=== PATIENT | male | born 1950 | race Caucasian/White ===

== ENCOUNTER 2018-02-11 14:47 | Inpatient (IN) ==
[2018-02-11] MEDS ORDERED: Sod Chloride 0.9% Inj 1,000 ML IV.SIG ONE (14:59)
[2018-02-11 15:52] LABS: Baso % (Auto) 0.5 % (0.0-2.0); Hematocrit 40.3 % (39.0-51.0); Hemoglobin 13.7 gm/dL (13.0-17.0); Lymph # (Auto) 0.8 th/mm3 (1.0-4.8); Mean Corpuscular HGB Conc 33.9 % (32.0-36.0); Mean Corpuscular Hemoglobin 27.9 pg (27.0-34.0); Mean Corpuscular Volume 82.4 fL (80.0-100.0); Mean Platelet Volume 8.3 fL (7.0-11.0); Mono # (Auto) 0.6 th/mm3 (0.0-0.9); Mono % (Auto) 7.5 % (0.0-8.0); Neut # (Auto) 6.4 th/mm3 (1.8-7.7); Platelet Count 198 th/mm3 (150-450); Red Blood Count 4.89 mil/mm3 (4.50-5.90); Red Cell Distribution Width 14.4 % (11.6-17.2); White Blood Count 7.9 th/mm3 (4.0-11.0)
[2018-02-11 16:02] LABS: Anion Gap 19 meq/L (5-15); Aspartate Aminotransferase 116 U/L (15-37); Blood Urea Nitrogen 23 mg/dL (7-18); Calcium 8.2 mg/dL (8.5-10.1); Carbon Dioxide 18.6 meq/L (21.0-32.0); Chloride 92 meq/L (98-107); Glomerular Filtration Rate Greater Than 89 mL/min (>89); Glucose,Random 93 mg/dL (74-106); Lipase 847 U/L (73-393); Potassium 3.5 meq/L (3.5-5.1); Sodium 130 meq/L (136-145)
[2018-02-11 16:03] LABS: Alanine Aminotransferase 121 U/L (12-78)
[2018-02-11 16:05] LABS: Alkaline Phosphatase 70 U/L (45-117); Total Protein 7.4 g/dL (6.4-8.2)
[2018-02-11 16:08] LABS: Alcohol 52 mg/dL (0-5)
[2018-02-11] MEDS ORDERED: Sod Chloride 0.9% Inj 1,000 ML IV.SIG SCH ×2 (16:15→16:45)
[2018-02-11] MEDS ORDERED: Haloperidol Inj 5 MG/ML Ampul IV.PUSH PRN ×2 (16:38→17:02)
[2018-02-11] MEDS ORDERED: LORazepam 1 MG Tablet PO PRN ×2 (16:38→17:02)
--- NOTE | 2018-02-11 16:49 | P.HP ---
History of Present Illness Primary Care Physician: Jessica Moy Chief Complaint: Stopped drinking and now has N&V History of Present Illness: This is a 67 year old male patient with a past medical history which includes Asthma, HTN, BPH and ETOH abuse, drinks 2 bottles (unable to give size of bottles) of Vodka a day then stopped drinking today. Patient now having nausea , vomiting and tremors. Patient also c/o, "tooth pain," in the anterior aspect of his mouth. Patient denies abd pain. Patient denies fevers, chills, chest pain or SOB. PMH: Asthma, HTN, BPH and ETOH abuse, drinks 2 bottles (unable to give size of bottle ) of Vodka a day PSxH: Cholecystectomy Social history: lives with significant other ETOH abuse, drinks 2 bottles (unable to give size of bottle) of Vodka a day Quit tobacco use 25 + years ago used marijuana months ago FMH: reviewed and noncontributory - Diagnosis (1) ETOH abuse PMFSH - History History Provided By: Patient - Medical History Medical History: Medical History (Last Updated 02/11/18 @ 15:07 by Chana Haynes RN) Asthma COPD (chronic obstructive pulmonary disease) Hypertension - Tobacco History Smoking Status: Former smoker Tobacco Type: Cigarettes - Alcohol History How Often Do You Have a Drink Containing Alcohol: 4 or more times a week - Substance Use History Substance History: No History of Abuse - Travel History Recent Travel in the [place] Within the Last 8 Weeks: No Recent Travel Out of the Country Within the Last 8 Weeks: No - Immunization History Tetanus Immunization: >5 Years Hx Influenza Vaccine This Season: Yes Medications and Allergies Active Medications: Active Medications Flumazenil (Romazecon Inj) 0.2 mg IV.PUSH Q1M PRN PRN Reason: OVERSEDATION Haloperidol Lactate (Haldol Inj) 1 mg IV.PUSH Q15M PRN PRN Reason: for severe agitation Sodium Chloride (Ns Inj) 1,000 mls @ 0 mls/hr IV.SIG BOLUS PIPPA Sodium Chloride (Ns Inj) 1,000 mls @ 0 mls/hr IV.SIG BOLUS PIPPA Lorazepam (Ativan Inj) 1 mg IV.PUSH Q4H PRN PRN Reason: for CIWA 8-10 Lorazepam (Ativan Inj) 2 mg IV.PUSH Q15M PRN PRN Reason: for CIWA > 20 Lorazepam (Ativan Inj) 2 mg IV.PUSH Q2H PRN PRN Reason: for CIWA 11-14 Lorazepam (Ativan) 1 mg PO Q4H PRN PRN Reason: for CIWA 8-10 Lorazepam (Ativan) 2 mg PO Q2H PRN PRN Reason: for CIWA 11-14 Lorazepam (Ativan Inj) 2 mg IV.PUSH Q1H PRN PRN Reason: for CIWA 15-20 Allergies Allergy/AdvReac Type Severity Reaction Status Date / Time No Known Allergies Allergy Uncoded 08/18/12 19:38 Exam Vital signs: Vital Signs 02/11/18 14:59 02/11/18 15:08 02/11/18 16:06 Temperature 98.9 F Pulse Rate 100 H 95 H Respiratory Rate 16 Blood Pressure 210/95 H 208/87 H 194/87 H Pulse Oximetry 96 98 Intake & Output 02/10/18 02/11/18 02/11/18 18:59 06:59 18:59 Weight 75.75 kg Narrative: GENERAL: This is ill appearing thin 67 year old male mildly tremulous bilateral upper extremities Oral mucosa: poor dentition with multiple decaying teeth CARDIOVASCULAR: Regular rate and rhythm RESPIRATORY: Clear to auscultation. Breath sounds equal bilaterally. GASTROINTESTINAL: Abdomen soft, tender RUQ, nondistended. Normal active bowel sounds MUSCULOSKELETAL: Extremities without clubbing, cyanosis, or edema. NEURO: Alert & Oriented x4 to person, place, time, situation. Moves all ext x4 Results - Labs CBC & Chem 7: 02/11/18 15:04 02/11/18 15:04 Labs: Laboratory Results - last 24 hr 02/11/18 02/11/18 02/11/18 15:04 15:04 15:45 WBC 7.9 RBC 4.89 Hgb 13.7 Hct 40.3 MCV 82.4 MCH 27.9 MCHC 33.9 RDW 14.4 Plt Count 198 MPV 8.3 Neut % (Auto) 82.0 H Lymph % (Auto) 10.0 [place] % (Auto) 7.5 Eos % (Auto) 0.0 Baso % (Auto) 0.5 Neut # (Auto) 6.4 Lymph # (Auto) 0.8 L [place] # (Auto) 0.6 Eos # (Auto) 0.0 Baso # (Auto) 0.0 WBC Differential . Differential Comment Auto diff final Sodium 130 L Potassium 3.5 Chloride 92 L Carbon Dioxide 18.6 L Anion Gap 19 H BUN 23 H Creatinine 0.67 Estimated GFR Greater than 89 Random Glucose 93 Lactic Acid 3.9 H Calcium 8.2 L Total Bilirubin 0.9 AST 116 H ALT 121 H Alkaline Phosphatase 70 Total Protein 7.4 Albumin 4.0 Lipase 847 H Serum Alcohol 52 H Caprini VTE Risk Assessment Caprini VTE Risk Assessment: No/Low Risk (score <= 1) Caprini Risk Assessment Model: Point Value = 1 Point Value = 2 Point Value = 3 Point Value = 5 Age 41-60 Minor surgery BMI > 25 kg/m2 Swollen legs Varicose veins or History of unexplained or recurrent spontaneous Oral contraceptives or hormone replacement Sepsis (< 1 month) Serious lung disease, including pneumonia (< 1 month) Abnormal pulmonary function Acute myocardial infarction Congestive heart failure (< 1 month) History of inflammatory bowel disease Medical patient at bed rest Age 61-74 Arthroscopic surgery Major open surgery (> 45 min) Laparoscopic surgery (> 45 min) Malignancy Confined to bed (> 72 hours) Immobilizing plaster cast Central venous access Age >= 75 History of VTE Family history of VTE Factor V Leiden Prothrombin [id number] Lupus anticoagulant Anticardiolipin antibodies Elevated serum homocysteine Heparin-induced thrombocytopenia Other congenital or acquired thrombophilia Stroke (< 1 month) Elective arthroplasty Hip, pelvis, or leg fracture Acute spinal cord injury (< 1 month) Prophylaxis Regimen: Total Risk Factor Score Risk Level Prophylaxis Regimen 0-1 Low Early ambulation 2 Moderate Order ONE of the following: *Sequential Compression Device (SCD) *Heparin 5000 units SQ BID 3-4 Higher Order ONE of the following medications: *Heparin 5000 units SQ TID *Enoxaparin/Lovenox 40 mg SQ daily (WT < 150 kg, CrCl > 30 mL/min) *Enoxaparin/Lovenox 30 mg SQ daily (WT < 150 kg, CrCl > 10-29 mL/min) *Enoxaparin/Lovenox 30 mg SQ BID (WT < 150 kg, CrCl > 30 mL/min) AND/OR *Sequential Compression Device (SCD) 5 or more Highest Order ONE of the following medications: *Heparin 5000 units SQ TID (Preferred with Epidurals) *Enoxaparin/Lovenox 40 mg SQ daily (WT < 150 kg, CrCl > 30 mL/min) *Enoxaparin/Lovenox 30 mg SQ daily (WT < 150 kg, CrCl > 10-29 mL/min) *Enoxaparin/Lovenox 30 mg SQ BID (WT < 150 kg, CrCl > 30 mL/min) AND *Sequential Compression Device (SCD) Assessment and Plan - Assessment (1) ETOH abuse Code(s): F10.10 - Alcohol abuse, uncomplicated Status: Acute Plan: ETOH withdraw This is a 67 year old male patient with a past medical history which includes Asthma, HTN, BPH and ETOH abuse, drinks 2 bottles (unable to give size of bottle ) of Vodka a day then stopped drinking today. Patient now having nausea, vomiting and tremors. Patient also c/o, "tooth pain," in the anterior aspect of his mouth. Patient denies abd pain. Patient denies fevers, chills, chest pain or SOB. Librium 25 mg TID CIWA protocol seizure precautions total Bilirubin 0.9, AST 116, ALT 121 and alk phos 70 patient counselled encouraged to abstain Supportive care monitor in ICU overnight Hyponatremia likely related to ETOH abuse and vomiting IVFs recheck in AM Pancreatitis Lipase 847, recheck in AM IVF NPO zofarn as needed CT abd/Pelvis with contrast ordered Asthma does not appear to be in acute exacerbation duonebs as needed HTN clonidine 0.1 mg Q6H as needed Continue home medication once med reconciliation completed BPH Continue home Flomax Poor dentition/tooth decay recommend patient follow up with dentist after DC from the hospital DVT prophylaxis with SCDs
--- NOTE | 2018-02-11 17:23 | XR ---
EXAM DATE: 02/11/2018 5:17 PM EDT AGE/SEX: 67 years / Male INDICATIONS: Shortness of breath, chest pain and nausea. CLINICAL DATA: This is the patient's initial encounter. Patient reports that signs and symptoms have been present for 1 day and indicates a pain score of 2/10. MEDICAL/SURGICAL HISTORY: Hypertension. Chronic obstructive pulmonary disease. Asthma. None. COMPARISON: [facility] [place], CHEST SINGLE AP, 05/14/2012. . FINDINGS: The lungs are clear without infiltrate, nodule, or mass. There is no appreciable pleural effusion for technique. Heart and mediastinum are unremarkable. CONCLUSION: No acute cardiopulmonary disease. Electronically signed by: Quang Hu MD 02/11/2018 5:22 PM EDT
[2018-02-11] MEDS ORDERED: Diatrizoate Meglum/Diatrizoate Sod Liq 9 ML UDC PO ONE (18:00)
--- NOTE | 2018-02-11 18:05 | ED ---
HPI General Chief complaint: Nausea/Vomiting/Diarrhea Stated complaint: dizziness Time Seen by Provider: 02/11/18 14:50 Source: patient and EMS Mode of arrival: EMS Limitations: no limitations History of Present Illness HPI Narrative: 67-year-old male the presents to the ED for evaluation of weakness, nausea vomiting and possible tremors. Patient has a history of alcoholism and per patient he abuses alcohol in binges. Apparently his been going on a 2 week binge of alcohol and he last drank yesterday. Per patient he has been feeling very weak and tired. Apparently his roommate call ambulance. Per ambulance report the room where the patient was taken from was full of empty bottles of alcohol. Patient states that he feels very weak. He is dry heaving on my exam. He denies doing this for suicidal ideation but rather for recreational purposes. He states that he has been doing this for some time and per medical records he has. He does have a history of pancreatitis as well. He also states that he has acute pain and this pain is 4 out of 10. He denies any other medical issues. No chest pain or shortness of breath. No urinary or bowel movement issues. Related Data Allergies Allergy/AdvReac Type Severity Reaction Status Date / Time No Known Allergies Allergy Uncoded 08/18/12 19:38 Review of Systems ROS: all other systems reviewed are negative [facility] Medical History Medical History Asthma (Acute) COPD (chronic obstructive pulmonary disease) (Acute) Hypertension (Acute) Social History Social History Substance History: No History of Abuse Smoking Status: Former smoker Tobacco Type: Cigarettes How Often Do You Have a Drink Containing Alcohol: 4 or more times a week Recent Travel in [facility] within the Last 8 Weeks: No Recent Out of Country Travel within the Last 8 Weeks: No Immunization History Tetanus Immunization: >5 Years Hx Influenza Vaccine This Season: Yes Exam Narrative Exam Narrative: GENERAL: Disheveled SKIN: Focused skin assessment warm/dry. HEAD: Atraumatic. Normocephalic. EYES: Pupils equal and round. No scleral icterus. No injection or drainage. ENT: No nasal bleeding or discharge. Mucous membranes pink and moist. Tongue is midline. No uvula deviation. NECK: Trachea midline. No JVD. CARDIOVASCULAR: Regular rate and rhythm. No murmur appreciated. RESPIRATORY: No accessory muscle use. Clear to auscultation. Breath sounds equal bilaterally. GASTROINTESTINAL: Abdomen soft, non-tender, nondistended. Hepatic and splenic margins not palpable. MUSCULOSKELETAL: No obvious deformities. No clubbing. No cyanosis. No edema. Full range of motion of the upper and lower extremities bilaterally. 2+ pulses bilaterally. Mild tremors noted on the upper extremities. NEUROLOGICAL: Awake and alert. No obvious cranial nerve deficits. Motor grossly within normal limits. Normal speech. PSYCHIATRIC: Intoxicated mood and affect; insight and judgment normal. Course Initial Documented Vital Signs Temperature 98.9 F 02/11/18 14:59 Pulse Rate 100 H 02/11/18 14:59 Respiratory Rate 16 02/11/18 14:59 Blood Pressure 210/95 H 02/11/18 14:59 Pulse Oximetry 96 02/11/18 14:59 Last Documented Vital Signs Temperature 98.9 F 02/11/18 14:59 Pulse Rate 90 02/11/18 17:03 Respiratory Rate 16 02/11/18 17:03 Blood Pressure 177/84 H 02/11/18 17:03 Pulse Oximetry 94 L 02/11/18 17:03 Medical Decision Making MDM Narrative Medical decision making narrative: 67-year-old male the presents to the ED for evaluation of alcohol abuse. Patient was properly examined and was found to have signs and symptoms consistent appears to be alcohol withdrawal possible dehydration and pancreatitis. Patient does have tooth infection as well. Labs and imaging were ordered. Patient does have an elevated lipase as well as what appears to be dehydration with hyponatremia. Patient does appear to be going to some withdrawal with his alcohol level in the 50s. He was given Ativan and fluids here. Lactic acid is highly elevated 3.9. Likely from the hydration and alcohol abuse. Patient's anion gap is also slightly elevated. Case discussed with my attending Dr. Breaux who agrees to admission. Patient was admitted to the medical team after Dr. Mckeon agreed to admission. Patient agrees to admission. Medical Screen Exam Complete: Yes Emergency Medical Condition: Yes Differential Diagnosis Differential Diagnosis: Alcohol withdrawal versus alcohol versus pancreatitis versus dehydration versus electrolyte normality versus nausea and vomit Medical Records Medical records reviewed: Yes I reviewed the patient's medical records. Lab Data Lab results reviewed: Yes I reviewed the patient's lab results. Lab results narrative: Lactic acid of 3.9 Result diagrams: 02/11/18 15:04 02/11/18 15:04 Lab Results 02/11/18 02/11/18 02/11/18 Range/Units 15:04 15:04 15:45 WBC 7.9 (4.0-11.0) th/mm3 RBC 4.89 (4.50-5.90) mil/mm3 Hgb 13.7 (13.0-17.0) gm/dL Hct 40.3 (39.0-51.0) % MCV 82.4 (80.0-100.0) fL MCH 27.9 (27.0-34.0) pg MCHC 33.9 (32.0-36.0) % RDW 14.4 (11.6-17.2) % Plt Count 198 (150-450) th/mm3 MPV 8.3 (7.0-11.0) fL Neut % (Auto) 82.0 H (16.0-70.0) % Lymph % (Auto) 10.0 (9.0-44.0) % [place] % (Auto) 7.5 (0.0-8.0) % Eos % (Auto) 0.0 (0.0-4.0) % Baso % (Auto) 0.5 (0.0-2.0) % Neut # (Auto) 6.4 (1.8-7.7) th/mm3 Lymph # (Auto) 0.8 L (1.0-4.8) th/mm3 [place] # (Auto) 0.6 (0.0-0.9) th/mm3 Eos # (Auto) 0.0 (0.0-0.4) th/mm3 Baso # (Auto) 0.0 (0.0-0.2) th/mm3 WBC Differential . Differential Comment Auto diff final Sodium 130 L (136-145) meq/L Potassium 3.5 (3.5-5.1) meq/L Chloride 92 L (98-107) meq/L Carbon Dioxide 18.6 L (21.0-32.0) meq/L Anion Gap 19 H (5-15) meq/L BUN 23 H (7-18) mg/dL Creatinine 0.67 (0.60-1.30) mg/dL Estimated GFR Greater than 89 (>89) mL/min Random Glucose 93 (74-106) mg/dL Lactic Acid 3.9 H (0.4-2.0) mmol/L Calcium 8.2 L (8.5-10.1) mg/dL Total Bilirubin 0.9 (0.2-1.0) mg/dL AST 116 H (15-37) U/L ALT 121 H (12-78) U/L Alkaline Phosphatase 70 (45-117) U/L Total Protein 7.4 (6.4-8.2) g/dL Albumin 4.0 (3.4-5.0) g/dL Lipase 847 H (73-393) U/L Serum Alcohol 52 H (0-5) mg/dL Imaging Data Attestation: I personally reviewed and interpreted this imaging study as follows : Radiologist's impression: Chest X-Ray 02/11/18 00:00 CONCLUSION: No acute cardiopulmonary disease. ECG Data Attestation: I personally reviewed and interpreted this ECG as follows: Interpretation: EKG shows sinus rhythm with no sign of acute ischemia or arrhythmia read by me and attending. Discharge Plan Discharge Disposition Patient Disposition: 30 Still Patient Discharge Details Diagnosis: Acute dehydration, ETOH abuse, Acute pancreatitis, Acute hyponatremia Physicians Team ED Provider: Lorri Breaux ED Midlevel Provider: Perez Alberto Attending Provider: Fito Mckeon Discharge Interventions Interventions: Vital Signs Last Done: 02/11/18 17:03 Status ED Status: Admitted Patient
--- NOTE | 2018-02-11 20:33 | CT ---
EXAM DATE: 02/11/2018 8:28 PM EDT AGE/SEX: 67 years / Male INDICATIONS: Diffuse abdomen pain for two weeks. CLINICAL DATA: This is the patient's initial encounter. Patient reports that signs and symptoms have been present for 2 weeks and indicates a pain score of 4/10. MEDICAL/SURGICAL HISTORY: Asthma. Chronic obstructive pulmonary disease. Hypertension. None. ORAL CONTRAST: Prescribed oral contrast ingested. RADIATION DOSE: 6.67 CTDI (mGy) COMPARISON: No prior exams available for comparison. TECHNIQUE: Multiple contiguous axial images were obtained through the abdomen and pelvis following b olus infusion of 90 ml Omnipaque 350 (iohexol) nonionic water-soluble contrast as a single exam dos e. Prescribed oral contrast ingested. Using automated exposure control and adjustment of the mA and/ or kV according to patient size, radiation dose was kept as low as reasonably achievable to obtain op timal diagnostic quality images. DICOM format image data is available electronically for review and comparison. FINDINGS: Abdomen CT: The spleen, pancreas, kidneys, adrenals are unremarkable. There is no evidence for any appreciable pa thological adenopathy, free fluid, or bowel obstruction. The liver is diffusely fatty without focal lesions for technique. There are atherosclerotic calcifications involving the aorta and iliac arteri es chronic in nature. Pelvic CT: There is no evidence for mass, abscess formation, or any significant adenopathy within the pelvis. T here are numerous diverticuli within the colon mainly the sigmoid colon without signs of diverticulit is for technique. There is prominent fat within bilateral inguinal canals without evidence for ama l herniation. CONCLUSION: Extensive fatty infiltration of liver and colonic diverticulosis. Electronically signed by: Quang Hu MD 02/11/2018 8:32 PM EDT
[2018-02-11] MEDS: chlordiazePOXIDE 25 MG Capsule PO SCH (21:31)
[2018-02-12] MEDS: Chlorhexidine Gluconate 2% 1 Pack (2 Cloths) TOPICAL SCH (03:41)
[2018-02-12] MEDS ORDERED: Chlorhexidine Gluconate 2% 1 Pack (2 Cloths) TOPICAL PRN (04:00)
[2018-02-12] MEDS: chlordiazePOXIDE 25 MG Capsule PO SCH ×3 (06:05→23:11)
[2018-02-12 07:30] LABS: Baso # (Auto) 0.1 th/mm3 (0.0-0.2); Baso % (Auto) 0.6 % (0.0-2.0); Eos # (Auto) 0.1 th/mm3 (0.0-0.4); Eos % (Auto) 0.9 % (0.0-4.0); Hematocrit 35.4 % (39.0-51.0); Lymph # (Auto) 1.5 th/mm3 (1.0-4.8); Lymph % (Auto) 19.1 % (9.0-44.0); Mean Corpuscular Hemoglobin 27.9 pg (27.0-34.0); Mean Corpuscular Volume 82.1 fL (80.0-100.0); Mean Platelet Volume 8.5 fL (7.0-11.0); Mono % (Auto) 12.3 % (0.0-8.0); Neut # (Auto) 5.3 th/mm3 (1.8-7.7); Neut % (Auto) 67.1 % (16.0-70.0); Platelet Count 162 th/mm3 (150-450); Red Blood Count 4.31 mil/mm3 (4.50-5.90); Red Cell Distribution Width 14.7 % (11.6-17.2); White Blood Count 7.9 th/mm3 (4.0-11.0)
[2018-02-12 07:42] LABS: Alanine Aminotransferase 91 U/L (12-78); Albumin 3.2 g/dL (3.4-5.0); Alkaline Phosphatase 57 U/L (45-117); Anion Gap 12 meq/L (5-15); Aspartate Aminotransferase 79 U/L (15-37); Blood Urea Nitrogen 17 mg/dL (7-18); Chloride 98 meq/L (98-107); Glomerular Filtration Rate Greater Than 89 mL/min (>89); Glucose,Random 89 mg/dL (74-106); Lipase 684 U/L (73-393); Potassium 3.8 meq/L (3.5-5.1); Sodium 134 meq/L (136-145); Total Protein 6.2 g/dL (6.4-8.2)
[2018-02-12] MEDS: Multivitamin/Minerals Therapeutic Tablet PO SCH (08:24)
[2018-02-12] MEDS: Folic Acid 1 MG Tablet PO SCH (08:24)
--- NOTE | 2018-02-12 09:01 | P.PNIM ---
Subjective Interval history: denies abdomen pain/n/v this AM c/o tremors. Physical Exam Vital signs: Vital Signs 02/11/18 14:59 02/11/18 15:08 02/11/18 16:06 Temperature 98.9 F Pulse Rate 100 H 95 H Respiratory Rate 16 Blood Pressure 210/95 H 208/87 H 194/87 H Pulse Oximetry 96 98 02/11/18 17:03 02/11/18 18:00 02/11/18 18:41 Temperature Pulse Rate 90 84 100 H Respiratory Rate 16 12 Blood Pressure 177/84 H 177/84 H 190/91 H Pulse Oximetry 94 L 02/11/18 22:00 02/12/18 00:00 02/12/18 04:00 Temperature 98.8 F 98.5 F 98.4 F Pulse Rate 78 73 69 Respiratory Rate 22 20 18 Blood Pressure 171/80 H 182/79 H 162/72 H Pulse Oximetry 97 94 L 94 L Intake & Output 02/11/18 02/12/18 02/12/18 18:59 06:59 18:59 Intake Total 480 / 480 2100 / 2100 Output Total 300 / 300 Balance 480 / 480 1800 / 1800 Weight 75.75 kg 74 kg Intake: IV 2000 / 2000 NS + KCl 20 mEq Inj 1,000 ML @ 1000 / 1000 84 mls/hr IV.CONT .[id number] [facility] Rx#:[id number] Oral 480 / 480 100 / 100 Output: Urine 300 / 300 Other: # Bowel Movements 0 Weight On Admission 74 kg heart reg lung cta abd s/nt ext no edema Results - Labs CBC & Chem 7: 02/12/18 06:18 02/12/18 06:18 Laboratory Results - last 24 hr 02/11/18 02/11/18 02/11/18 15:04 15:04 15:45 WBC 7.9 RBC 4.89 Hgb 13.7 Hct 40.3 MCV 82.4 MCH 27.9 MCHC 33.9 RDW 14.4 Plt Count 198 MPV 8.3 Neut % (Auto) 82.0 H Lymph % (Auto) 10.0 [place] % (Auto) 7.5 Eos % (Auto) 0.0 Baso % (Auto) 0.5 Neut # (Auto) 6.4 Lymph # (Auto) 0.8 L [place] # (Auto) 0.6 Eos # (Auto) 0.0 Baso # (Auto) 0.0 WBC Differential . Differential Comment Auto diff final Sodium 130 L Potassium 3.5 Chloride 92 L Carbon Dioxide 18.6 L Anion Gap 19 H BUN 23 H Creatinine 0.67 Estimated GFR Greater than 89 Random Glucose 93 Lactic Acid 3.9 H Calcium 8.2 L Total Bilirubin 0.9 AST 116 H ALT 121 H Alkaline Phosphatase 70 Total Protein 7.4 Albumin 4.0 Lipase 847 H Nasal Screen MRSA (PCR) Serum Alcohol 52 H 02/11/18 02/12/18 02/12/18 21:15 06:18 06:18 WBC 7.9 RBC 4.31 L Hgb 12.0 L Hct 35.4 L MCV 82.1 MCH 27.9 MCHC 34.0 RDW 14.7 Plt Count 162 MPV 8.5 Neut % (Auto) 67.1 Lymph % (Auto) 19.1 [place] % (Auto) 12.3 H Eos % (Auto) 0.9 Baso % (Auto) 0.6 Neut # (Auto) 5.3 Lymph # (Auto) 1.5 [place] # (Auto) 1.0 H Eos # (Auto) 0.1 Baso # (Auto) 0.1 WBC Differential . Differential Comment Auto diff final Sodium 134 L Potassium 3.8 Chloride 98 Carbon Dioxide 24.0 Anion Gap 12 BUN 17 Creatinine 0.56 L Estimated GFR Greater than 89 Random Glucose 89 Lactic Acid Calcium 8.0 L Total Bilirubin 0.9 AST 79 H ALT 91 H Alkaline Phosphatase 57 Total Protein 6.2 L D Albumin 3.2 L D Lipase 684 H Nasal Screen MRSA (PCR) Not detected Serum Alcohol - Imaging Impressions Abdomen/Pelvis CT 02/11/18 00:00 CONCLUSION: Extensive fatty infiltration of liver and colonic diverticulosis. Chest X-Ray 02/11/18 00:00 CONCLUSION: No acute cardiopulmonary disease. Assessment and Plan - Assessment (1) ETOH abuse Code(s): F10.10 - Alcohol abuse, uncomplicated Status: Acute Plan: ETOH withdrawal This is a 67 year old male patient with a past medical history which includes Asthma, HTN, BPH and ETOH abuse, drinks 2 bottles (unable to give size of bottle ) of Vodka a day then stopped drinking today. Patient now having nausea, vomiting and tremors. Patient also c/o, "tooth pain," in the anterior aspect of his mouth. Patient denies abd pain. Patient denies fevers, chills, chest pain or SOB. total Bilirubin 0.9, AST 116, ALT 121 and alk phos 70 on admission Librium 25 mg TID CIWA protocol seizure precautions patient counselled encouraged to abstain Supportive care transfer to med/surg IVF. Hyponatremia likely related to ETOH abuse and vomiting IVFs Pancreatitis Lipase 847 on admission. IVF NPO prn zofran Asthma does not appear to be in acute exacerbation duonebs as needed HTN clonidine 0.1 mg Q6H as needed Continue home medication once med reconciliation completed BPH Continue home Flomax Poor dentition/tooth decay recommend patient follow up with dentist after DC from the hospital DVT prophylaxis with SCDs
--- NOTE | 2018-02-12 12:26 | ECG ---
Date Performed: 02/11/2018 Time Performed: 15:52:08 PTAGE: 67 years EKG: Sinus rhythm NONSPECIFIC ST & T-WAVE ABNORMALITY BORDERLINE ECG Since the PREVIOUS TRACING , no significant change noted PREVIOUS TRACIN05/14/2012 06.45 DOCTOR: Eliane Garza Interpretating Date/Time 02/12/2018 12:23:44
[2018-02-13] MEDS: chlordiazePOXIDE 25 MG Capsule PO SCH ×3 (06:03→22:43)
[2018-02-13] MEDS: Chlorhexidine Gluconate 2% 1 Pack (2 Cloths) TOPICAL SCH (06:07)
[2018-02-13 07:37] LABS: Anion Gap 13 meq/L (5-15); Blood Urea Nitrogen 12 mg/dL (7-18); Calcium 8.1 mg/dL (8.5-10.1); Carbon Dioxide 22.7 meq/L (21.0-32.0); Chloride 101 meq/L (98-107); Glomerular Filtration Rate Greater Than 89 mL/min (>89); Glucose,Random 69 mg/dL (74-106); Lipase 589 U/L (73-393); Sodium 137 meq/L (136-145)
--- NOTE | 2018-02-13 08:41 | P.PNIM ---
Subjective Interval history: eager for dc had alot of tremors yesterday. no vomiting wants resume po. Physical Exam Vital signs: Vital Signs 02/12/18 09:00 02/12/18 10:00 02/12/18 11:00 Temperature Pulse Rate 71 66 66 Respiratory Rate 29 H 21 19 Blood Pressure 166/82 H 158/74 H 178/78 H Pulse Oximetry 96 94 L 96 02/12/18 12:00 02/12/18 13:00 02/12/18 14:00 Temperature Pulse Rate 66 67 73 Respiratory Rate 20 22 28 H Blood Pressure 162/73 H 157/76 H 159/88 H Pulse Oximetry 96 96 97 02/12/18 15:00 02/12/18 16:00 02/12/18 16:01 Temperature 98 F Pulse Rate 66 69 70 Respiratory Rate 20 21 21 Blood Pressure 171/75 H 157/70 H Pulse Oximetry 96 97 97 02/12/18 17:00 02/12/18 17:06 02/12/18 18:00 Temperature Pulse Rate 71 70 67 Respiratory Rate 20 22 20 Blood Pressure 119/66 131/60 Pulse Oximetry 96 97 97 02/12/18 19:00 02/12/18 20:00 02/12/18 21:00 Temperature 97.8 F Pulse Rate 66 64 73 Respiratory Rate 22 20 24 Blood Pressure 150/70 H 163/74 H 169/81 H Pulse Oximetry 97 97 97 02/12/18 22:32 02/13/18 00:00 02/13/18 04:00 Temperature 97.9 F 98 F 97.2 F L Pulse Rate 70 73 70 Respiratory Rate 16 16 16 Blood Pressure 152/82 H 166/80 H 162/77 H Pulse Oximetry 96 97 95 Intake & Output 02/12/18 02/13/18 02/13/18 18:59 06:59 18:59 Intake Total 1000 / 1000 1000 / 1000 Output Total 350 / 350 Balance 1000 / 1000 650 / 650 Intake: IV 1000 / 1000 1000 / 1000 NS + KCl 20 mEq Inj 1,000 ML @ 1000 / 1000 1000 / 1000 84 mls/hr IV.CONT .[id number] [facility] Rx#:[id number] Oral 0 / 0 Output: Urine 350 / 350 Other: # Voids 6 Date of Last Bowel Movement 02/12/18 # Bowel Movements 0 heart reg lung cta abd s/nt ext no edema Results - Labs CBC & Chem 7: 02/12/18 06:18 02/13/18 05:26 Laboratory Results - last 24 hr 02/12/18 02/12/18 02/13/18 12:22 20:46 05:26 Sodium 137 Potassium 4.0 Chloride 101 Carbon Dioxide 22.7 Anion Gap 13 BUN 12 Creatinine 0.44 L Estimated GFR Greater than 89 POC Glucose 88 72 Random Glucose 69 L Calcium 8.1 L Lipase 589 H Assessment and Plan - Assessment (1) ETOH abuse Code(s): F10.10 - Alcohol abuse, uncomplicated Status: Acute Plan: ETOH withdrawal This is a 67 year old male patient with a past medical history which includes Asthma, HTN, BPH and ETOH abuse, drinks 2 bottles (unable to give size of bottle ) of Vodka a day then stopped drinking today. Patient now having nausea, vomiting and tremors. Patient also c/o, "tooth pain," in the anterior aspect of his mouth. Patient denies abd pain. Patient denies fevers, chills, chest pain or SOB. total Bilirubin 0.9, AST 116, ALT 121 and alk phos 70 on admission Librium 25 mg TID CIWA protocol seizure precautions patient counselled on etoh cessation. IVF. plan for dc home tomorrow. PT eval today and advance diet. Hyponatremia likely related to ETOH abuse and vomiting IVFs Pancreatitis Lipase 847 on admission. IVF start liquid diet and advance Asthma does not appear to be in acute exacerbation duonebs as needed HTN clonidine 0.1 mg Q6H as needed BPH Continue home Flomax Poor dentition/tooth decay recommend patient follow up with dentist after DC from the hospital DVT prophylaxis with SCDs
[2018-02-13] MEDS: Multivitamin/Minerals Therapeutic Tablet PO SCH (09:35)
[2018-02-13] MEDS: Folic Acid 1 MG Tablet PO SCH (09:35)
--- NOTE | 2018-02-13 17:08 | MG ---
cc: Andreina Martell MD EEG NUMBER: [id number]. REFERRING PHYSICIAN: Linda. In room 1609 with photic stimulation. Awake, drowsy, asleep. Admitted with weakness, nausea, vomiting, possible tremors, 2 weeks of binging on alcohol, with a history of alcoholism, COPD, hypertension, and pancreatitis. On Librium, Catapres, vitamin. DESCRIPTION OF RECORD: The patient has some faster frequency waves consistent with what looks like beta frequency, may be due to medicine effect. This is seen bilaterally. Some artifact from myogenic, some snoring, myogenic movement. Photic stimulation does elicit a positive driving response. No epileptiform features. IMPRESSION: Abnormal EEG due to faster frequency waves, such as theta that may be seen with the benzodiazepine effect like pain medication. No epileptic activity seen. Clinical correlation is suggested. Andreina Martell MD DF/klever , 03:49 PM , 03:55 PM
[2018-02-13] MEDS: Lisinopril 10 MG Tablet PO SCH (22:43)
[2018-02-13 23:19] VITALS: RESP 17
[2018-02-14 06:28] VITALS: BP 161/78; PULSE 67; TEMP 98.6; O2SAT 98
[2018-02-14] MEDS: Chlorhexidine Gluconate 2% 1 Pack (2 Cloths) TOPICAL SCH (07:41)
[2018-02-14] MEDS: chlordiazePOXIDE 25 MG Capsule PO SCH (07:42)
[2018-02-14] MEDS: Folic Acid 1 MG Tablet PO SCH (08:38)
[2018-02-14] MEDS: Lisinopril 10 MG Tablet PO SCH (08:38)
[2018-02-14] MEDS: Multivitamin/Minerals Therapeutic Tablet PO SCH (08:38)
--- NOTE | 2018-02-14 08:43 | P.PNIM ---
Subjective Interval history: eager for dc. his ride is coming in 20minutes tolerating full liquid ambulating denies tremor Physical Exam Vital signs: Vital Signs 02/13/18 12:00 02/13/18 16:00 02/13/18 20:00 Temperature 98 F 98 F 98.6 F Pulse Rate 16 L 82 78 Respiratory Rate 16 16 17 Blood Pressure 168/79 H 178/85 H 173/84 H Pulse Oximetry 97 97 98 02/13/18 20:15 02/14/18 00:00 02/14/18 00:21 Temperature 98.4 F Pulse Rate 68 74 65 Respiratory Rate 17 Blood Pressure 160/72 H Pulse Oximetry 97 02/14/18 04:00 Temperature 98.6 F Pulse Rate 67 Respiratory Rate 17 Blood Pressure 161/78 H Pulse Oximetry 98 Intake & Output 02/13/18 02/14/18 02/14/18 18:59 06:59 18:59 Intake Total 1000 / 1000 Balance 1000 / 1000 Intake: IV 1000 / 1000 NS + KCl 20 mEq Inj 1,000 ML @ 1000 / 1000 84 mls/hr IV.CONT .[id number] [facility] Rx#:[id number] Other: Date of Last Bowel Movement 02/13/18 heart reg lung cta abd s/nt ext no edema Results - Labs CBC & Chem 7: 02/12/18 06:18 02/13/18 05:26 Laboratory Results - last 24 hr 02/14/18 04:43 Lipase 548 H Assessment and Plan - Assessment (1) ETOH abuse Code(s): F10.10 - Alcohol abuse, uncomplicated Status: Acute Plan: ETOH withdrawal This is a 67 year old male patient with a past medical history which includes Asthma, HTN, BPH and ETOH abuse, drinks 2 bottles (unable to give size of bottle ) of Vodka a day then stopped drinking today. Patient now having nausea, vomiting and tremors. Patient also c/o, "tooth pain," in the anterior aspect of his mouth. Patient denies abd pain. Patient denies fevers, chills, chest pain or SOB. total Bilirubin 0.9, AST 116, ALT 121 and alk phos 70 on admission Librium 25 mg TID CIWA protocol seizure precautions patient counselled on etoh cessation. IVF. eager for dc home. already called his ride and will be here in 20min ambulating and bennie full liquid. will cont liquid diet for a few days and advance slowly given short taper of ativan. stop etoh. pcp f/u next week. pt will resume his home bp meds. Hyponatremia likely related to ETOH abuse and vomiting IVFs Pancreatitis Lipase 847 on admission. IVF started liquid diet and advance Asthma does not appear to be in acute exacerbation duonebs as needed HTN clonidine 0.1 mg Q6H as needed BPH Continue home Flomax Poor dentition/tooth decay recommend patient follow up with dentist after DC from the hospital DVT prophylaxis with SCDs
--- NOTE | 2018-02-25 21:38 | P.DS ---
Date of admission: 02/11/18 16:45 Primary care physician: Jessica Moy Anticipated date of discharge: 02/14/18 Brief History from admission: This is a 67 year old male patient with a past medical history which includes Asthma, HTN, BPH and ETOH abuse, drinks 2 bottles (unable to give size of bottles) of Vodka a day then stopped drinking today. Patient now having nausea , vomiting and tremors. Patient also c/o, "tooth pain," in the anterior aspect of his mouth. Patient denies abd pain. Patient denies fevers, chills, chest pain or SOB. PMH: Asthma, HTN, BPH and ETOH abuse, drinks 2 bottles (unable to give size of bottle ) of Vodka a day PSxH: Cholecystectomy Social history: lives with significant other ETOH abuse, drinks 2 bottles (unable to give size of bottle) of Vodka a day Quit tobacco use 25 + years ago used marijuana months ago FMH: reviewed and noncontributory DS: Diagnosis - Discharge Diagnosis (1) ETOH abuse Status: Acute DS: Medications - Discharge Medications Prescriptions: lorazepam [Ativan] 0.5 mg PO DIRECTED #13 tab DS: Summary Hospital Course: - Assessment (1) ETOH abuse Code(s): F10.10 - Alcohol abuse, uncomplicated Status: Acute Plan: ETOH withdrawal This is a 67 year old male patient with a past medical history which includes Asthma, HTN, BPH and ETOH abuse, drinks 2 bottles (unable to give size of bottle ) of Vodka a day then stopped drinking today. Patient now having nausea, vomiting and tremors. Patient also c/o, "tooth pain," in the anterior aspect of his mouth. Patient denies abd pain. Patient denies fevers, chills, chest pain or SOB. total Bilirubin 0.9, AST 116, ALT 121 and alk phos 70 on admission Librium 25 mg TID CIWA protocol seizure precautions patient counselled on etoh cessation. IVF. eager for dc home. already called his ride and will be here in 20min ambulating and bennie full liquid. will cont liquid diet for a few days and advance slowly given short taper of ativan. stop etoh. pcp f/u next week. pt will resume his home bp meds. Hyponatremia likely related to ETOH abuse and vomiting IVFs Pancreatitis Lipase 847 on admission. IVF started liquid diet and advance Asthma does not appear to be in acute exacerbation duonebs as needed HTN clonidine 0.1 mg Q6H as needed BPH Continue home Flomax Poor dentition/tooth decay recommend patient follow up with dentist after DC from the hospital DVT prophylaxis with SCDs - Time Spent with Patient Total time spent providing and/or coordinating discharge services: Greater than 30 minutes - Quality: VTE Deep Vein Thrombosis/Pulmonary Embolism Present on Admission: No Exam Vital signs: heart reg lung cta abd s/nt ext no edema Results Procedures completed during hospitalization: none - Impressions ITS Impressions Abdomen/Pelvis CT 02/11/18 00:00 CONCLUSION: Extensive fatty infiltration of liver and colonic diverticulosis. Chest X-Ray 02/11/18 00:00 CONCLUSION: No acute cardiopulmonary disease. Discharge Plan - Discharge Disposition Patient Disposition: 01 Discharge Home - Discharge Condition Condition: Stable - Discharge Order Discharge Orders: Discharge Order (Routine); Ordered 02/14/18 Ordered By: Humphrey James - Discharge Details Anticipated Discharge Date: 02/14/18 - Physicians Team Attending Provider: Fito Mckeon
== END 2018-02-14 09:30 | disposition home or self-care (01) ==
LOC: NEPC 14:47 → NEDA 16:45 → HIMC 21:10 → N06 02-12 22:00
PROVIDERS: ADMIT Hospitalist; ATTEND Hospitalist